=== PATIENT | female | born 1970 | race Caucasian/White ===

== ENCOUNTER → 2016-09-06 14:35 | Emergency (ER) | payer SELFPAY ==
[~2016-09-06 14:35] MED LIST: Cyclobenzaprine TAB* 10 MG PO ONE; Ketorolac INJ* 60 MG/2 ML VIAL IM ONE
[2016-09-06 14:41] VITALS: BP 145/96
--- NOTE | 2016-09-06 16:16 | ED ---
Back Pain - HPI Summary HPI Summary: Patient presents with back pain that began without known injury two days ago. She has a history of spinal stenosis and back pain. 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 Her pain is concentrated in the low back and does not radiate down her legs. She has tried heat and rest without relief. She is not incontinent of urine or stool. - History of Current Complaint Chief Complaint: EDGeneral Stated Complaint: BACK PAIN Time Seen by Provider: 09/06/16 15:25 Hx Obtained From: Patient Onset/Duration: Gradual Onset Onset/Duration: Started Days Ago - 2, Atraumatic Timing: Constant Back Pain Location: Is Discrete @ - low back Severity Initially: Moderate Severity Currently: Severe Pain Intensity: 8 Character: Aching, Spasmodic, Stiffness Aggravating Symptom(s): Movement Alleviating Symptom(s): Nothing Associated Signs And Symptoms: Positive: Pain with Weight Bearing Related History: Previous Back Injury - Allergies/Home Medications Allergies/Adverse Reactions: Allergies Allergy/AdvReac Type Severity Reaction Status Date / Time Morphine AdvReac Hallucinati Verified 08/12/13 13:19 ons PMH/Surg Hx/FS Hx/Imm Hx Previously Healthy: Yes Endocrine/Hematology History: Denies: Hx Diabetes Cardiovascular History: Denies: Hx Hypertension, Hx Pacemaker/ICD Respiratory History: Denies: Hx Asthma History: Reports: Other Problems/Disorders - Vaginal wall cancer, repair done, hx cervical CA Denies: Hx Renal Disease Musculoskeletal History: Reports: Hx Back Problems Sensory History: Reports: Hx Contacts or Glasses Denies: Hx Hearing Aid Opthamlomology History: Reports: Hx Contacts or Glasses Neurological History: Reports: Other Neuro Impairments/Disorders - PAIN CLINIC PATIENT Psychiatric History: Reports: Other Psychiatric Issues/Disorders - hx alcholism tx approximately 2003, stopped drinking x 6 years Denies: Hx Panic Disorder - Cancer History Cancer Type, Location and Year: CERVICAL CA, vaginal wall cancer - Surgical History Surgery Procedure, Year, and Place: HX CERVICAL CA BIOPSIES, ABLASION,. HX vaginal wall cancer, surgery 2010 Infectious Disease History: No Infectious Disease History: Denies: Traveled Outside the [place] in Last 30 Days - Family History Known Family History: Positive: None - Social History Occupation: Employed Full-time Lives: With Family Alcohol Use: Occasionally Alcohol Amount: couple beers/day Substance Use Type: Reports: None Smoking Status (MU): Heavy Every Day Tobacco Smoker Type: Cigarettes Amount Used/How Often: 1/2ppd Have You Smoked in the Last Year: Yes Cessation Counseling: Patient Advised to Stop Review of Systems Negative: Fever, Chills Positive: Myalgia. Negative: Edema Negative: Bruising Negative: Paresthesia, Numbness All Other Systems Reviewed And Are Negative: Yes Physical Exam Triage Information Reviewed: Yes Vital Signs On Initial Exam: Initial Vitals Temp Pulse Resp BP Pulse Ox 98 F 91 20 145/96 98 09/06/16 14:39 09/06/16 14:39 09/06/16 14:39 09/06/16 14:39 09/06/16 14:39 Vital Signs Reviewed: Yes Appearance: Positive: Well-Appearing, Well-Nourished, Pain Distress Skin: Positive: Warm, Skin Color Reflects Adequate Perfusion, Dry, Tender Head/Face: Positive: Normal Head/Face Inspection Eyes: Positive: EOMI, FLORENCIA, Conjunctiva Clear ENT: Positive: Hearing grossly normal Neck: Positive: Supple, Nontender Respiratory/Lung Sounds: Positive: Breath Sounds Present Cardiovascular: Positive: RRR Abdomen Description: Positive: Nontender, Soft Musculoskeletal: Positive: Limited @ - flexion, extension and rotation limited due to pain; 5/5 strength with knee and ankle flex/ext.; + B SLR, Pain @ - TTP bilateral SI joints and lumbar spine muscles Neurological: Positive: Sensory/Motor Intact, Alert, Oriented to Person Place, Time, NV Bundle Intact Distally Psychiatric: Positive: Affect/Mood Appropriate AVPU Assessment: Alert Diagnostics - Vital Signs Vital Signs Temp Pulse Resp BP Pulse Ox 09/06/16 14:41 98 F 92 20 145/96 98 09/06/16 14:39 98 F 91 20 145/96 98 - Laboratory Lab Statement: Any lab studies that have been ordered have been reviewed, and results considered in the medical decision making process. Re-Evaluation - Re-Evaluation First Eval Re-Evaluation Time: 16:15 Change: Improved Comment: pain improved Back Pain Course/Dx - Diagnoses Differential Diagnosis/HQI/PQRI: Positive: Aneurysm, Cauda Equina Syndrome, Compressive Cord Syndrome, Herniated Disc, Osteoporosis, Strain, Sprain Provider Diagnoses: Low back pain Discharge - Discharge Plan Condition: Stable Disposition: HOME Prescriptions: Cyclobenzaprine TAB* [Flexeril 10 MG TAB*] 10 mg PO TID PRN #15 tab PRN Reason: Pain Ibuprofen TAB* [Motrin TAB* 600 MG] 600 mg PO Q6H PRN #40 tab PRN Reason: Pain Patient Education Materials: Back Pain (ED), Lower Back Exercises (ED) Forms: *Work Release Referrals: Eugenia Thomas MD [Primary Care Provider] - Additional Instructions: Please begin using ibuprofen 600mg three times daily with meals for the next 3- 5 days in combination with the muscle relaxer as needed. Apply heat to your back and get plenty of rest. Follow-up with your primary care provider if symptoms do not begin to improve in the 5-7 days. Return to the emergency department if symptoms worsen.
== END | disposition home or self-care (01) ==
LOC: ED 14:35
DX: M54.5 Low back pain (principal); F17.210 Nicotine dependence, cigarettes, uncomplicated; Z88.5 Allergy status to narcotic agent
CPT/HCPCS: 99282; A9270-GY; J1885

== ENCOUNTER 2017-04-04 12:11 | Emergency (ER) | payer OTHER ==
[2017-04-04] MEDS ORDERED: Ketorolac INJ* 60 MG/2 ML VIAL IM ONE (13:01)
[2017-04-04] MEDS ORDERED: Dexamethasone TAB* 4 MG PO ONE (13:02)
[2017-04-04] MEDS ORDERED: Cyclobenzaprine TAB* 10 MG PO ONE (13:02)
--- NOTE | 2017-04-04 13:05 | ED ---
Back Pain - HPI Summary HPI Summary: 46F presents with back pain since yesterday. She has a history of spinal stenosis and states the pain feels the same as this. she was seen by the pain clinic and given shots which helped but hasn't had one in a while. She denies any fever. She states she gets pain down her legs which is unchanged. She states there is nothing about this pain that is different. She denies any loss of bowel or bladder or saddle anaesthesia. She denies any weakness. She states she went to work yesterday which made the pain worst. She was unable to get in with her primary today. She has been taking ibuprofen without relief. - History of Current Complaint Chief Complaint: EDBackInjuryPain Stated Complaint: BACK PAIN Time Seen by Provider: 04/04/17 12:31 Pain Intensity: 10 - Allergies/Home Medications Allergies/Adverse Reactions: Allergies Allergy/AdvReac Type Severity Reaction Status Date / Time Morphine AdvReac Hallucinati Verified 08/12/13 13:19 ons PMH/Surg Hx/FS Hx/Imm Hx Endocrine/Hematology History: Denies: Hx Diabetes Cardiovascular History: Denies: Hx Hypertension, Hx Pacemaker/ICD Respiratory History: Denies: Hx Asthma History: Reports: Other Problems/Disorders - Vaginal wall cancer, repair done, hx cervical CA Denies: Hx Renal Disease Musculoskeletal History: Reports: Hx Back Problems Sensory History: Reports: Hx Contacts or Glasses Denies: Hx Hearing Aid Opthamlomology History: Reports: Hx Contacts or Glasses Neurological History: Reports: Other Neuro Impairments/Disorders - PAIN CLINIC PATIENT Psychiatric History: Reports: Other Psychiatric Issues/Disorders - hx alcholism tx approximately 2003, stopped drinking x 6 years Denies: Hx Panic Disorder - Cancer History Cancer Type, Location and Year: CERVICAL CA, vaginal wall cancer - Surgical History Surgery Procedure, Year, and Place: HX CERVICAL CA BIOPSIES, ABLASION,. HX vaginal wall cancer, surgery 2010 - Immunization History Date of Tetanus Vaccine: NO Date of Influenza Vaccine: NO Infectious Disease History: No Infectious Disease History: Denies: Traveled Outside the [place] in Last 30 Days - Family History Known Family History: Positive: None - Social History Alcohol Use: Daily Alcohol Amount: 6 beers/day Substance Use Type: Reports: None Smoking Status (MU): Heavy Every Day Tobacco Smoker Type: Cigarettes Amount Used/How Often: 1/2ppd Have You Smoked in the Last Year: Yes Review of Systems Negative: Fever Negative: Chest Pain Negative: Shortness Of Breath Positive: Myalgia - back pain All Other Systems Reviewed And Are Negative: Yes Physical Exam Triage Information Reviewed: Yes Vital Signs On Initial Exam: Initial Vitals Temp Pulse Resp BP Pulse Ox 97.4 F 92 16 132/93 98 04/04/17 12:12 04/04/17 12:12 04/04/17 12:12 04/04/17 12:12 04/04/17 12:12 Vital Signs Reviewed: Yes Appearance: Positive: Pain Distress Skin: Positive: Warm, Dry Head/Face: Positive: Normal Head/Face Inspection Eyes: Positive: Normal, EOMI, FLORENCIA, Conjunctiva Clear ENT: Positive: Normal ENT inspection, Pharynx normal, TMs normal Respiratory/Lung Sounds: Positive: Clear to Auscultation, Breath Sounds Present Cardiovascular: Positive: Normal, RRR Abdomen Description: Positive: Nontender, Soft Bowel Sounds: Positive: Present Musculoskeletal: Positive: Strength/ROM Intact - back with pain, Other - tenderness lower back, pos SLR, good pulses, good strength lower extremities, sensation grossly intact Neurological: Positive: Reflexes Intact - patella Psychiatric: Positive: Normal - Rafael Coma Scale Coma Scale Total: 15 Diagnostics - Vital Signs Vital Signs Temp Pulse Resp BP Pulse Ox 04/04/17 12:12 97.4 F 92 16 132/93 98 - Laboratory Lab Statement: Any lab studies that have been ordered have been reviewed, and results considered in the medical decision making process. Back Pain Course/Dx - Course Course Of Treatment: 46F presents with back pain since yesterday. She has a history of spinal stenosis and states the pain feels the same as this. she was seen by the pain clinic and given shots which helped but hasn't had one in a while. She denies any fever. She states she gets pain down her legs which is unchanged. She states there is nothing about this pain that is different. She denies any loss of bowel or bladder or saddle anaesthesia. She denies any weakness. She states she went to work yesterday which made the pain worst. She was unable to get in with her primary today. She has been taking ibuprofen without relief. on exam tenderness across lower back. pos SLR. good pulses, sensation gross intact, patella reflex intact. no red flags to do any imaging. will treat with flexeril and steriod. gave referral for PT. patient understand and agrees with plan. - Diagnoses Differential Diagnosis/HQI/PQRI: Positive: Herniated Disc, Strain, Sprain Provider Diagnoses: Back pain Discharge - Discharge Plan Condition: Good Disposition: HOME Prescriptions: Cyclobenzaprine TAB* [Flexeril 10 MG TAB*] 10 mg PO TID PRN #15 tab PRN Reason: Pain Methylprednisolone [Medrol Dosepak 4 MG*] 4 mg PO .SEE KRAIG INSTRUCTION #1 packet Patient Education Materials: Back Pain (ED) Referrals: Eugenia Thomas MD [Medical Doctor] [place] [facility] [place]Medical Doctor] - Additional Instructions: Follow directions on package for Medrol pack Take muscle relaxers three times a day Use ibuprofen or Tylenol for pain every 6 hours ice/heat area, move as much as possible Follow up with primary within 5 days follow up with PT Return to ED if develop any new or worsening symptoms
[2017-04-04 13:48] VITALS: BP 129/76
== END 2017-04-04 13:48 | disposition home or self-care (01) ==
LOC: ED 12:11
DX: M54.9 Dorsalgia, unspecified (principal); F17.210 Nicotine dependence, cigarettes, uncomplicated
CPT/HCPCS: 96372; 99282; A9270-GY; J1885; J8540